=== PATIENT | male | born 2005 | race Two or more races ===

== ENCOUNTER 2024-09-08 00:32 | Inpatient (IN) | payer OTHER ==
[~2024-09-08] VITALS: Ht 190.5 cm; Wt 71.0 kg
[2024-09-08] VITALS (7 sets, daily range): BP systolic 105–122; BP diastolic 41–66; PULSE 60–92; RESP 8–18; TEMP 97.4–98; O2SAT 93–99
[2024-09-08 04:37] LABS: Basophils # (auto) 0 10 ^3/uL (0-0.2); Basophils % (auto) 0.3 % (0.0-2.0); Eosinophils # (auto) 0.1 10 ^3/uL (0-0.8); Eosinophils % (auto) 1.5 % (0.0-7.0); Hematocrit 41.4 % (41.0-53.0); Hemoglobin 14.7 g/dL (13.5-17.5); Lymphocytes # (auto) 2.5 10 ^3/uL (0.4-5.4); Lymphocytes % (auto) 32.8 % (10.0-50.0); Mean Corpuscular Hemoglobin 33.2 pg (28.0-32.0); Mean Corpuscular Hgb Conc. 35.5 g/dL (32.0-36.0); Mean Corpuscular Volume 93.5 fL (80.0-100.0); Monocytes # (auto) 0.6 10 ^3/uL (0-1.3); Monocytes % (auto) 8.2 % (0.0-12.0); Neutrophils # (auto) 4.4 10 ^3/uL (1.6-8.6); Neutrophils % (auto) 57.2 % (37.0-80.0); Nucleated Red Blood Cells % 0.2 %; Platelet Count (auto) 164 10^3/uL (140-450); Red Blood Cells 4.43 10^6/uL (4.5-5.90); White Blood Cell 7.7 10^3/uL (4.4-10.8)
[2024-09-08 04:38] LABS: INR 1.09 (0.9-1.15); Prothrombin Time 11.5 sec (9.3-11.8)
[2024-09-08 04:40] LABS: Alanine Aminotransferase 15 U/L (7-40); Albumin 4.3 g/dL (3.2-4.8); Alkaline Phosphatase 90 U/L (46-116); Anion Gap 6 (5-15); Aspartate Aminotransferase 17 U/L (13-40); BUN/Creatinine Ratio 14.6 (10.0-20.0); Bilirubin, Total 1.3 mg/dL (0.2-1.0); Blood Urea Nitrogen 15 mg/dL (9-23); Calcium 9.5 mg/dL (8.7-10.4); Carbon Dioxide 28 mmol/L (20-31); Chloride 105 mmol/L (98-107); Glucose 82 mg/dL (74-106); Potassium 3.8 mmol/L (3.5-5.1); Sodium 139 mmol/L (136-145); Total Protein 6.7 g/dL (5.7-8.2)
--- NOTE | 2024-09-08 04:44 | ED.PDOC ---
History of Present Illness HPI Comments 19 y/o M is [facility] from [facility] ([facility]) in [place], [place], for c/o abdominal pain, nausea, and vomiting for the past 2x days, today. Per EMS report, was seen at aforementioned facility for symptoms, earlier, and is being transferred for higher level of care after being found with acute appendicitis via CT scan there. Prior to arrival to ED, patient was stated to have been given Zosyn and Toradol. Patient denies any hematemesis, diarrhea, constipations, urinary symptoms, fever, chills, or other associated symptoms or modifiers at this time. Time Seen by MD: 01:00 Reviewed Notes: Nurses Notes, Behaviour Support Teacher Notes, Medications, Allergies Allergies: Coded Allergies: NO KNOWN ALLERGIES (Unverified , 09/08/24) Information Source: Patient, Transfer Record, Emergency Med Personnel Mode of Arrival: EMS Severity: Moderate Timing: Days Duration: Since onset Prehospital treatment: 12 Lead EKG, Basin Finish Operator Tig Welder, Other (see HPI) Past Medical History PAST MEDICAL HISTORY: Denies Surgical History: Denies all surgeries Family History Family History: Unknown Social History Smoker: Non-Smoker Alcohol: Denies ETOH Use Drugs: Denies Drug Use Lives In: Home All Other Systems: Reviewed and Negative (Comprehensive systems review obtained and negative except for what is stated in the HPI.) Physical Exam General Appearance: No Apparent Distress, Normal HEENT: Normal ENT Inspection, Pharynx Normal, TMs Normal Neck: Full Range of Motion, Non-Tender, Normal, Normal Inspection Respiratory: Chest Non-Tender, Lungs Clear, No Accessory Muscle Use, No Respiratory Distress, Normal Breath Sounds Cardiovascular: No Edema, No JVD, No Murmur, No Gallop, Normal Peripheral Pulses, Regular Rate/Rhythm Breast Exam: Deferred Gastrointestinal: No Organomegaly, No Pulsatile Mass, Normal Bowel Sounds, RLQ (tenderness ), Soft, Tenderness (RLQ) Genitalia: Deferred Pelvic: Deferred Rectal: Deferred Extremities: No calf tenderness, Normal capillary refill, Normal inspection, Normal range of motion, Non-tender, No pedal edema Musculoskeletal : Apperance: Normal Neurologic: Alert, soil scientist II-XII nml as Tested, No Motor Deficits, Normal Affect, Normal Mood, No Sensory Deficits Cerebellar Function: Normal Reflexes: Normal Skin: Dry, Normal Color, Warm Lymphatic: No Adenopathy Was a procedure done? Was a procedure done?: No EKG EKG : Pulse Rate (adult): 56 [place]: Normal Cardiac Rhythm: NSR Block: None Hypertrophy: None ST: Normal Differential Dx Considerations may include: appendicitis X-Ray, Labs, Meds, VS Vital Signs Date Time Temp Pulse Resp B/P (MAP) Pulse Ox O2 Delivery O2 Flow Rate FiO2 09/08/24 04:44 56 09/08/24 00:34 56 09/08/24 00:32 97.6 55 18 114/71 (85) 98 97.6 Lab Test 09/08/24 00:51 Range/Units White Blood Count 7.7 4.4-10.8 10^3/uL Red Blood Count 4.43 L 4.5-5.90 10^6/uL Hemoglobin 14.7 13.5-17.5 g/dL Hematocrit 41.4 41.0-53.0 % Mean Corpuscular Volume 93.5 80.0-100.0 fL Mean Corpuscular Hemoglobin 33.2 H 28.0-32.0 pg Mean Corpuscular Hemoglobin Concent 35.5 32.0-36.0 g/dL Red Cell Distribution Width 12.0 11.8-14.3 % Platelet Count 164 140-450 10^3/uL Mean Platelet Volume 10.0 6.9-10.8 fL Neutrophils (%) (Auto) 57.2 37.0-80.0 % Lymphocytes (%) (Auto) 32.8 10.0-50.0 % Monocytes (%) (Auto) 8.2 0.0-12.0 % Eosinophils (%) (Auto) 1.5 0.0-7.0 % Basophils (%) (Auto) 0.3 0.0-2.0 % Neutrophils # (Auto) 4.4 1.6-8.6 10 ^3/uL Lymphocytes # (Auto) 2.5 0.4-5.4 10 ^3/uL Monocytes # (Auto) 0.6 0-1.3 10 ^3/uL Eosinophils # (Auto) 0.1 0-0.8 10 ^3/uL Basophils # (Auto) 0 0-0.2 10 ^3/uL Nucleated Red Blood Cells 0.2 % Prothrombin Time 11.5 9.3-11.8 sec Prothrombin Time INR 1.09 0.9-1.15 Activated Partial Thromboplast Time 31.0 24.5-34.5 SEC Sodium Level 139 136-145 mmol/L Potassium Level 3.8 3.5-5.1 mmol/L Chloride Level 105 98-107 mmol/L Carbon Dioxide Level 28 20-31 mmol/L Anion Gap 6 5-15 Blood Urea Nitrogen 15 9-23 mg/dL Creatinine 1.03 0.700-1.30 mg/dL Glomerular Filtration Rate Calc 107 >90 mL/min BUN/Creatinine Ratio 14.6 10.0-20.0 Serum Glucose 82 74-106 mg/dL Calcium Level 9.5 8.7-10.4 mg/dL Total Bilirubin 1.3 H 0.2-1.0 mg/dL Aspartate Amino Transferase (AST) 17 13-40 U/L Alanine Aminotransferase (ALT) 15 7-40 U/L Alkaline Phosphatase 90 46-116 U/L Total Protein 6.7 5.7-8.2 g/dL Albumin 4.3 3.2-4.8 g/dL Time of 1ST Reevaluation: 01:30 Reevaluation 1ST: Unchanged Patient Education/Counseling: Diagnosis, Treatment Family Education/Counseling: No Family Present Additional Information Previous visit documents reviewed: n/a The following tests were ordered, and results were reviewed by me: EKG, PTPTT, CBC, CMP Additional Information was gathered from interviewing the following independent historians: EMS I reviewed and agreed with the following test results read by other providers: n/a I discussed treatment and results with medical personnel and: Patient Departure 1 Departure Time of Disposition: 04:55 (Patient presented with abdominal pain that was concerning for possible appendicits, gastritis, cholecystitis, colitis, gastroenteritis, sbo, or orther possible surgical emergency. Data: 1. I ordered and reviewed the result of at least 3 labs including a CBC, BMP, and Urinalysis. 2. I independently interpreted the following tests: Outside CT scan shows acute appendicitis.Risk:This patient has a high risk of morbidity due to further diagnostic testing or treatment and may suffer from an acute abdominal process disorder. Workup reveals acute appendicitis and patient should be admitted for further workup. and possible expert consultation. ) Impression: Primary Impression: Acute appendicitis Qualified Codes: K35.30 - Acute appendicitis with localized peritonitis, without perforation or gangrene Disposition: ADMITTED INPATIENT Admit to: Med Surg Condition: Serious Critical Care Note Critical Care Time?: Yes Critical care comment: Intractable abdominal pain Authorized and Performed by: Wilfredo Spangler MD Total critical care time: Approximately 48 minutes Due to a high probability of clinically significant, life threatening deterioration, the patient required my highest level of preparedness to intervene emergently and I personally spent this critical care time directly and personally managing the patient. This critical care time included obtaining a history; examining the patient; pulse oximetry; ordering and review of studies; arranging urgent treatment with development of a management plan; evaluation of patient's response to treatment; frequent reassessment; and, discussions with other providers. This critical care time was performed to assess and manage the high probability of imminent, life-threatening deterioration that could result in multi-organ failure. It was exclusive of separately billable procedures and treating other patients and teaching time. Please see my other sections and the rest of the note for further information on patient assessment and treatment. Stability Stability form required: No Heart Score Heart Score: Heart Score Response (Comments) Value History N/A 0 EKG N/A 0 Age N/A 0 Risk Factors N/A 0 Troponin N/A 0 Total 0 I personally scribed for WILFREDO SPANGLER MD ([email or web address]) on 09/08/24 at 04:44. Electronically submitted by Ronaldo Stern ([email or web address]). WILFREDO SPANGLER MD Sep 08, 2024 04:44
--- NOTE | 2024-09-08 05:16 | DVH ---
CHEST RADIOGRAPH Indication: SOB Technique: Single frontal view of the chest was obtained COMPARISON: None FINDINGS: Lines and Tubes: None Lungs: Clear Pleura: No effusion. No pneumothorax. Cardiomediastinal contours: Unremarkable Bones: Unremarkable IMPRESSION: No acute disease.
--- NOTE | 2024-09-08 05:22 | DVHHP2 ---
History of Present Illness Reason for Visit: Abdominal pain History of Present Illness 19-year-old male presents for evaluation of abdominal pain. Patient presented to outside facility with complaints of abdominal pain and has been ongoing for the past two days. CT scan from outside facility revealed acute appendicitis so he was transferred for higher level of care. He states his symptoms became worse yesterday. Describes the pain as intermittent sharp right lower quadrant pain. Denies nausea or vomiting. No fever or chills. No other acute complaints reported. Past Medical History Denies Past Surgical History Denies Family History Noncontributory Smoke: No ALCOHOL: none Drugs: None Review of Systems Review of Systems Review of systems are currently negative otherwise addressed in HPI. Allergies: Coded Allergies: NO KNOWN ALLERGIES (Unverified , 09/08/24) Exam Vital Signs Vital Signs Date Time Temp Pulse Resp B/P (MAP) Pulse Ox O2 Delivery O2 Flow Rate FiO2 09/08/24 04:44 56 09/08/24 00:32 97.6 18 114/71 (85) 98 97.6 Exam Gen: 19-year-old male in mild distress Skin: Warm, dry, normal color and texture, no rash. HEENT: Normocephalic atraumatic, mucous membranes moist and pink. Neck: Cervical and supraclavicular nodes normal without enlargement, trachea is midline, thyroid gland is normal without masses. Pulmonary: Clear to auscultation and percussion bilaterally. Cardiac: Regular rate and rhythm. No murmur Abdomen: Soft, right lower quadrant tenderness, nondistended, bowel sounds present all 4 quadrants, no guarding, no rigidity, no organomegaly. Extremities: No cyanosis, clubbing, no edema Neuro: Cranial nerves II through XII grossly intact, normal affect and speech, no focal motor deficits. Labs/Xrays Labs Test 09/08/24 00:51 Range/Units White Blood Count 7.7 4.4-10.8 10^3/uL Red Blood Count 4.43 L 4.5-5.90 10^6/uL Hemoglobin 14.7 13.5-17.5 g/dL Hematocrit 41.4 41.0-53.0 % Mean Corpuscular Volume 93.5 80.0-100.0 fL Mean Corpuscular Hemoglobin 33.2 H 28.0-32.0 pg Mean Corpuscular Hemoglobin Concent 35.5 32.0-36.0 g/dL Red Cell Distribution Width 12.0 11.8-14.3 % Platelet Count 164 140-450 10^3/uL Mean Platelet Volume 10.0 6.9-10.8 fL Neutrophils (%) (Auto) 57.2 37.0-80.0 % Lymphocytes (%) (Auto) 32.8 10.0-50.0 % Monocytes (%) (Auto) 8.2 0.0-12.0 % Eosinophils (%) (Auto) 1.5 0.0-7.0 % Basophils (%) (Auto) 0.3 0.0-2.0 % Neutrophils # (Auto) 4.4 1.6-8.6 10 ^3/uL Lymphocytes # (Auto) 2.5 0.4-5.4 10 ^3/uL Monocytes # (Auto) 0.6 0-1.3 10 ^3/uL Eosinophils # (Auto) 0.1 0-0.8 10 ^3/uL Basophils # (Auto) 0 0-0.2 10 ^3/uL Nucleated Red Blood Cells 0.2 % Prothrombin Time 11.5 9.3-11.8 sec Prothrombin Time INR 1.09 0.9-1.15 Activated Partial Thromboplast Time 31.0 24.5-34.5 SEC Sodium Level 139 136-145 mmol/L Potassium Level 3.8 3.5-5.1 mmol/L Chloride Level 105 98-107 mmol/L Carbon Dioxide Level 28 20-31 mmol/L Anion Gap 6 5-15 Blood Urea Nitrogen 15 9-23 mg/dL Creatinine 1.03 0.700-1.30 mg/dL Glomerular Filtration Rate Calc 107 >90 mL/min BUN/Creatinine Ratio 14.6 10.0-20.0 Serum Glucose 82 74-106 mg/dL Calcium Level 9.5 8.7-10.4 mg/dL Total Bilirubin 1.3 H 0.2-1.0 mg/dL Aspartate Amino Transferase (AST) 17 13-40 U/L Alanine Aminotransferase (ALT) 15 7-40 U/L Alkaline Phosphatase 90 46-116 U/L Total Protein 6.7 5.7-8.2 g/dL Albumin 4.3 3.2-4.8 g/dL Assessment/Plan Assessment/Plan Assessment Acute abdominal pain Acute appendicitis Plan Admit the patient to [facility] to the hospitalist Surgical consultation Zosyn Maintenance IV fluids Pain management Continue treatment per orders. Plan discussed with: Patient Date of Service: Sep 08, 2024 Billing Provider: DEL POWERS Common Visit Codes: [id number] INP/OBS CARE (HIGH) DEL POWERS Sep 08, 2024 05:22
[2024-09-08] MEDS: PIPERACILLIN-TAZOB 3.375GM 100 ML IV SCH (05:53)
[2024-09-08] MEDS: SODIUM CHLORIDE 0.9% 1,000 ML IV ONE (05:53)
[2024-09-08] MEDS: ONDANSETRON HCL 4 MG/2 ML VIAL IV PRN (07:53)
[2024-09-08] MEDS: MORPHINE SULFATE INJ 2 MG/ml SYRG IV PRN (07:54)
--- NOTE | 2024-09-08 14:24 | DVHPN2 ---
Progress Note Date Seen: Sep 08, 2024 Medical Necessity Reason Pt with a Central, PICC or Fol: No Subjective Patient reports: No new complaints Review of Systems: HEENT:Normal, CVS:Normal, RESPIRATORY:Normal, GI:Normal, :Normal, MSK:Normal, NEURO:Normal Objective vital signs Vital Sign Date Time Temp Pulse Resp B/P (MAP) Pulse Ox O2 Delivery O2 Flow Rate FiO2 09/08/24 13:00 98.0 87 18 106/41 (62) 97 98.0 09/08/24 08:00 Room Air* 0 21 Total Intake and Output 09/07/24 09/07/24 09/08/24 15:00 23:00 07:00 Intake Total 125 ml Balance 125 ml medications Current Medications Medications Dose Ordered Sig/Jennifer Route Start Time Stop Time Status Last Admin Dose Admin Piperacillin Sod/ Tazobactam Sod 100 ml @ 25 mls/hr Q6HR IV 09/08/24 06:00 09/08/24 13:12 25 MLS/HR Ondansetron HCl 4 mg Q4HP PRN IV 09/08/24 05:15 09/08/24 07:53 4 MG Morphine Sulfate 2 mg Q4HPRN PRN IV 09/08/24 05:15 09/08/24 07:54 2 MG Examination: GENERAL:Normal, HEENT:Normal, NECK:Normal, LUNGS:Normal, CVS:Normal, ABDOMEN:Normal, ABDOMEN:Abnormal (abd tenderness), MSK:Normal, SKIN:Normal, NEURO:Normal, :Normal laboratory and microbiology Laboratory Tests 09/08/24 00:51 Test 09/08/24 00:51 Range/Units Serum Glucose 82 74-106 mg/dL Problem List/Assessment/Plan Problem List/Assessment/Plan #1 acute appy: ivf, iv antibiotics, surg today #2 tobacco abuse: advised to quit, nicotine patch- time spent 11 mins Plan discussed with: Patient Date of Service: Sep 08, 2024 Billing Provider: DEL GARCIA MD Common Visit Codes: [id number] INP/OBS CARE(HIGH) Secondary Visit Codes: [id number] CHNG SMOKING >10MIN DEL GARCIA MD Sep 08, 2024 14:24
--- NOTE | 2024-09-08 14:25 | DVHINCON2 ---
Date of service: Sep 08, 2024 Allergies: Coded Allergies: NO KNOWN ALLERGIES (Unverified , 09/08/24) Home Meds No Active Prescriptions or Reported Meds Current Medications Current Medications Medications (Trade) Dose Ordered Sig/Jennifer Route PRN Reason Start Time Stop Time Status Last Admin Piperacillin Sod/ Tazobactam Sod 100 ml @ 25 mls/hr Q6HR IV 09/08/24 06:00 09/08/24 13:12 Ondansetron HCl (Zofran) 4 mg Q4HP PRN IV NAUSEA / VOMITING 09/08/24 05:15 09/08/24 07:53 Morphine Sulfate 2 mg Q4HPRN PRN IV SEVERE PAIN (7-10 PAIN SCALE) 09/08/24 05:15 09/08/24 07:54 Vital Signs Vital Signs Date Time Temp Pulse Resp B/P (MAP) Pulse Ox O2 Delivery O2 Flow Rate FiO2 09/08/24 13:00 98.0 87 18 106/41 (62) 97 98.0 09/08/24 08:00 Room Air* 0 21 Labs/Diagnostic Data Labs Test 09/08/24 12:00 09/08/24 00:51 Range/Units White Blood Count 7.7 4.4-10.8 10^3/uL Red Blood Count 4.43 L 4.5-5.90 10^6/uL Hemoglobin 14.7 13.5-17.5 g/dL Hematocrit 41.4 41.0-53.0 % Mean Corpuscular Volume 93.5 80.0-100.0 fL Mean Corpuscular Hemoglobin 33.2 H 28.0-32.0 pg Mean Corpuscular Hemoglobin Concent 35.5 32.0-36.0 g/dL Red Cell Distribution Width 12.0 11.8-14.3 % Platelet Count 164 140-450 10^3/uL Mean Platelet Volume 10.0 6.9-10.8 fL Neutrophils (%) (Auto) 57.2 37.0-80.0 % Lymphocytes (%) (Auto) 32.8 10.0-50.0 % Monocytes (%) (Auto) 8.2 0.0-12.0 % Eosinophils (%) (Auto) 1.5 0.0-7.0 % Basophils (%) (Auto) 0.3 0.0-2.0 % Neutrophils # (Auto) 4.4 1.6-8.6 10 ^3/uL Lymphocytes # (Auto) 2.5 0.4-5.4 10 ^3/uL Monocytes # (Auto) 0.6 0-1.3 10 ^3/uL Eosinophils # (Auto) 0.1 0-0.8 10 ^3/uL Basophils # (Auto) 0 0-0.2 10 ^3/uL Nucleated Red Blood Cells 0.2 % Prothrombin Time 11.5 9.3-11.8 sec Prothrombin Time INR 1.09 0.9-1.15 Activated Partial Thromboplast Time 31.0 24.5-34.5 SEC Sodium Level 139 136-145 mmol/L Potassium Level 3.8 3.5-5.1 mmol/L Chloride Level 105 98-107 mmol/L Carbon Dioxide Level 28 20-31 mmol/L Anion Gap 6 5-15 Blood Urea Nitrogen 15 9-23 mg/dL Creatinine 1.03 0.700-1.30 mg/dL Glomerular Filtration Rate Calc 107 >90 mL/min BUN/Creatinine Ratio 14.6 10.0-20.0 Serum Glucose 82 74-106 mg/dL Calcium Level 9.5 8.7-10.4 mg/dL Total Bilirubin 1.3 H 0.2-1.0 mg/dL Aspartate Amino Transferase (AST) 17 13-40 U/L Alanine Aminotransferase (ALT) 15 7-40 U/L Alkaline Phosphatase 90 46-116 U/L Total Protein 6.7 5.7-8.2 g/dL Albumin 4.3 3.2-4.8 g/dL Assessment [id number] AC APPENDICITIS LAP/OPEN APPENDECTOMY Plan discussed with: Patient JULIANNA OLGUIN MD Sep 08, 2024 14:25
[2024-09-08] MEDS: NICOTINE 21MG/24 HR TOPICAL PATCH TD ONE (14:30)
--- NOTE | 2024-09-08 14:36 | DVHINCON2 ---
DATE OF CONSULTATION: 09/08/2024 HISTORY OF PRESENT ILLNESS: This patient is 19 years old, coming in with right lower abdominal pain started yesterday, some nausea, no vomiting, no constipation, diarrhea. No hematemesis, melena. No bleeding per rectum. PAST MEDICAL HISTORY: No diabetes, hypertension. PAST SURGICAL HISTORY: No significant surgical history. PHYSICAL EXAMINATION: VITAL SIGNS: Afebrile, stable signs. HEENT: With no evidence of pallor, cyanosis, or jaundice. NECK: Supple, nontender with no thyromegaly, lymphadenopathy. CHEST AND LUNGS: Clear. HEART: Within normal limits. ABDOMEN: Soft, tender in the right lower quadrant, evidence of rebound. EXTREMITIES: Unremarkable. NEUROLOGIC: Intact. CLINICAL IMPRESSION: Acute appendicitis. PLAN: Laparoscopic, possible open appendectomy. Benefits were discussed and a consent obtained. MD JULISSA Little/YVETTE TID: [id number] RECEIPT: [id number] cc: Evangelist Bond MD
[2024-09-08] MEDS ORDERED: LIDOCAINE 1% HCL (LOCAL ANESTH.) INJ 20ML MDV ONE (14:56)
[2024-09-08] MEDS ORDERED: ceFAZolin 2 GM/D5W100ml 100 ML IV ONE (15:20)
[2024-09-08] MEDS ORDERED: GLYCOPYRROLATE 0.2 MG/ML 1ML VIAL ONE (15:42)
[2024-09-08] MEDS ORDERED: PROPOFOL 10 MG/ML 20 ML IV ONE (15:42)
[2024-09-08] MEDS ORDERED: DexAMETHasone SOD PHOS 10MG/1ML VIAL INJ ONE (15:42)
[2024-09-08] MEDS ORDERED: LIDOCAINE 2% (LOCAL ANESTH.) PF 5ml SDV ONE (15:42)
[2024-09-08] MEDS ORDERED: ROCURONIUM 10MG/ML 10ML VIAL IV ONE (15:42)
[2024-09-08] MEDS ORDERED: SUGAMMADEX 200mg/2ml Vial (100MG/ML) IV ONE (15:42)
[2024-09-08] MEDS ORDERED: LIDOCAINE HCL 2% TOP JELLY 5ML TOP ONE (15:42)
[2024-09-08] MEDS ORDERED: KETOROLAC TROMETH 30 MG/ML 1ML VIAL ONE (15:42)
[2024-09-08] MEDS ORDERED: ONDANSETRON HCL 4 MG/2 ML VIAL ONE (15:42)
[2024-09-08] MEDS ORDERED: KETAMINE 50mg/ML 1ml syringe ONE (15:43)
[2024-09-08] MEDS ORDERED: fentaNYL CITRATE 100 MCG/2 ML VL ONE (15:43)
[2024-09-08] MEDS ORDERED: CELECOXIB 100 MG CAP ONE (15:43)
[2024-09-08] MEDS ORDERED: GABAPENTIN 300 MG CAP ONE (15:44)
[2024-09-08] MEDS ORDERED: ACETAMINOPHEN 500 MG TAB or CAP PO ONE (15:44)
[2024-09-08] MEDS ORDERED: CELECOXIB 100 MG CAP PO ONE (15:45)
[2024-09-08] MEDS ORDERED: ACETAMINOPHEN IV 1000 MG/100ML (10MG/ML) IV ONE (15:45)
[2024-09-08] MEDS ORDERED: GABAPENTIN 300 MG CAP PO ONE (15:45)
--- NOTE | 2024-09-08 16:47 | DVHOP2 ---
Operative Report [id number] AC APPENDICITIS LAP APPENDECTOMY EBL 5 CC NO DRAINS NO COMPLICATIONS JULIANNA OLGUIN MD Sep 08, 2024 16:47
[2024-09-08] MEDS ORDERED: HYDROmorphone HCL 2 MG/ML VL/or syr IV PRN (17:00)
[2024-09-08] MEDS ORDERED: ePHEDrine SULFATE 50 MG/ML AMP IV PRN (17:00)
[2024-09-08] MEDS ORDERED: hydrALAZINE HCL 20 MG/ML VL IV PRN (17:00)
[2024-09-08] MEDS ORDERED: FLUMAZENIL 0.1 MG/ML INJ 10ML MDV IV PRN (17:00)
[2024-09-08] MEDS ORDERED: fentaNYL CITRATE 100 MCG/2 ML VL IV PRN (17:00)
[2024-09-08] MEDS ORDERED: NALOXONE HCL 0.4 MG/ML VIAL IV PRN (17:00)
[2024-09-08] MEDS ORDERED: ONDANSETRON HCL 4 MG/2 ML VIAL IV PRN (17:00)
--- NOTE | 2024-09-08 17:05 | DVHOP ---
DATE OF SURGERY: 09/08/2024 PREOPERATIVE DIAGNOSES: Acute appendicitis with pelvic abscess. POSTOPERATIVE DIAGNOSES: Acute appendicitis with pelvic abscess. PROCEDURES: Drainage of pelvic abscess and laparoscopic appendectomy. SURGEON: Justin Gavin MD QUAHOGGER: None. ANESTHESIA: General. ESTIMATED BLOOD LOSS: Close to 5 mL DRAINS: No drains were used. COMPLICATIONS: No complication encountered. DESCRIPTION OF PROCEDURE: The patient was prepped and draped in the usual sterile fashion in the supine position and a supraumbilical incision was applied, was taken down to the fascia. The Veress needle was introduced and CO2 insufflation was started pressure of 15 mmHg and needle withdrawn, replaced by the 12 mm trocar and a telescope was introduced and the appendix was found to be acutely inflamed, mostly at the tip. It was a beginning appendicitis with a pelvic seroma collection with a possibility of an abscess. Two 5 mm ports were applied more inferiorly, one above the symphysis, the third midway between the upper two. The patient was placed in the Trendelenburg and right upper lateral position. The camera was moved to the lowermost 5 mm port, the upper 2 ports were used for surgery. The abscess was drained out from the pelvic location and the mesoappendix was clipped at the base, divided distal to that using Harmonic device. The base of the appendix was cleared for transection using the Endo BUTCH stapling device. The appendix released in this fashion, was retrieved from the supraumbilical wound in the EndoCatch bag without any complication. Hemostasis was secured. Irrigation fluid was removed. The ports were free from bleeding. EndoClose suture used for the fascial closure of the supraumbilical wound. All the ports were withdrawn after all the CO2 had been let out and the patient was placed in supine, the wounds were then brought together using 3-0 Monocryl suture in a subcuticular fashion. Surgical glue was applied. The patient tolerated the procedure well and was taken back to recovery room in stable condition. MD JULISSA Little/ALEXANDRO/SASHA TID: [id number] RECEIPT: [id number] cc: Evangelist Bond MD
[2024-09-08] MEDS: oxyCODONE HCL 5MG TAB PO PRN (18:18)
[2024-09-08] MEDS: metroNIDAZOLE 500MG/100ML 100 ML IV SCH (21:11)
[2024-09-08 23:06] LABS: Urine Bacteria None Seen /hpf (None Seen)
[2024-09-08 23:24] LABS: Urine Blood Negative /uL (Negative); Urine Clarity Clear (Clear); Urine Color Colorless (Yellow); Urine Protein, UAD Negative (Negative); Urine Specific Gravity 1.006 (1.001-1.035); Urine Squamous Epithelial Cell None Seen /hpf (<5); Urine Urobilinogen Normal (Negative); Urine pH 5.5 (5.0-9.0)
[2024-09-08] MEDS: HYDROcodone-ACET 5/325MG TAB PO PRN (23:27)
[2024-09-08 23:29] LABS: Urine WBC < 1 /HPF (0-3)
[2024-09-09] VITALS (7 sets, daily range): BP systolic 99–111; BP diastolic 39–71; PULSE 65–87; RESP 17–18; TEMP 97.3–97.9; O2SAT 96–100
[2024-09-09 06:32] LABS: Basophils # (auto) 0 10 ^3/uL (0-0.2); Basophils % (auto) 0.1 % (0.0-2.0); Eosinophils # (auto) 0 10 ^3/uL (0-0.8); Hematocrit 45.1 % (41.0-53.0); Hemoglobin 15.8 g/dL (13.5-17.5); Lymphocytes # (auto) 0.6 10 ^3/uL (0.4-5.4); Mean Corpuscular Hemoglobin 32.1 pg (28.0-32.0); Mean Corpuscular Hgb Conc. 34.9 g/dL (32.0-36.0); Mean Corpuscular Volume 91.9 fL (80.0-100.0); Monocytes # (auto) 0.2 10 ^3/uL (0-1.3); Monocytes % (auto) 3.2 % (0.0-12.0); Neutrophils # (auto) 6.1 10 ^3/uL (1.6-8.6); Neutrophils % (auto) 87.7 % (37.0-80.0); Platelet Count (auto) 170 10^3/uL (140-450); Red Blood Cells 4.91 10^6/uL (4.5-5.90); Red Cell Distribution Width 11.8 % (11.8-14.3)
[2024-09-09 06:43] LABS: Alanine Aminotransferase 14 U/L (7-40); Albumin 4.4 g/dL (3.2-4.8); Alkaline Phosphatase 93 U/L (46-116); Anion Gap 9 (5-15); Aspartate Aminotransferase 15 U/L (13-40); BUN/Creatinine Ratio 14.8 (10.0-20.0); Bilirubin, Total 1.1 mg/dL (0.2-1.0); Blood Urea Nitrogen 13 mg/dL (9-23); Calcium 9.9 mg/dL (8.7-10.4); Carbon Dioxide 27 mmol/L (20-31); Chloride 104 mmol/L (98-107); Potassium 4.7 mmol/L (3.5-5.1); Sodium 140 mmol/L (136-145); Total Protein 6.9 g/dL (5.7-8.2)
[2024-09-09 06:44] LABS: Glucose 126 mg/dL (74-106)
[2024-09-09] MEDS: MORPHINE SULFATE INJ 2 MG/ml SYRG IV ONE (09:08)
--- NOTE | 2024-09-09 09:08 | ECG ---
[facility] Test Date: 2024-09-08 Test Time: 00:34:41 Pat Name: MICHAEL DIETRICH Department: ED Room: 0223 B Gender: M Mill Feeder: ED : 2005 Requested By: EMERGENCY EMERGENCY Order Number: [id number] Reading MD: Enzo Ervin Measurements Intervals [place] Rate: 56 P: 76 CO: 146 QRS: 87 QRSD: 92 T: 64 QT: 414 QTc: 400 Interpretive Statements Sinus rhythm ST elev, probable normal early repol pattern Electronically Signed On 09-09-2024 14:07:23 PDT by Enzo Ervin Please click the below link to view image of tracing.
[2024-09-09] MEDS ORDERED: HYDROmorphone HCL 2 MG/ML VL/or syr IV PRN (09:15)
--- NOTE | 2024-09-09 10:22 | DVHPN2 ---
Progress Note Date Seen: Sep 09, 2024 Medical Necessity Reason Pt with a Central, PICC or Fol: No Subjective Patient reports: No new complaints Review of Systems: HEENT:Normal, CVS:Normal, RESPIRATORY:Normal, GI:Normal, :Normal, MSK:Normal, NEURO:Normal Objective vital signs Vital Sign Date Time Temp Pulse Resp B/P (MAP) Pulse Ox O2 Delivery O2 Flow Rate FiO2 09/09/24 09:08 78 17 111/71 09/09/24 08:53 97.7 98 97.7 09/08/24 20:00 Room Air* 0 21 Total Intake and Output 09/08/24 09/08/24 09/09/24 15:00 23:00 07:00 Intake Total 275 ml 100 ml 1534 ml Output Total 2 ml Balance 275 ml 98 ml 1534 ml medications Current Medications Medications Dose Ordered Sig/Jennifer Route Start Time Stop Time Status Last Admin Dose Admin Ondansetron HCl 4 mg Q4HP PRN IV 09/08/24 05:15 09/08/24 07:53 4 MG Morphine Sulfate 2 mg Q4HPRN PRN IV 09/08/24 05:15 09/09/24 05:25 2 MG Nicotine 1 patch Q24H TD 09/09/24 15:00 Ceftriaxone Sodium 50 ml @ 100 mls/hr Q24H IV 09/09/24 15:00 Metronidazole 100 ml @ 100 mls/hr Q8HR IV 09/08/24 22:00 09/09/24 05:30 100 MLS/HR Acetaminophen/ Hydrocodone Bitart 1 tab Q6HPRN PRN PO 09/08/24 14:30 09/08/24 23:27 1 TAB Hydromorphone HCl 0.25 mg Q4HPRN PRN IV 09/09/24 09:15 Examination: GENERAL:Normal, HEENT:Normal, NECK:Normal, LUNGS:Normal, CVS:Normal, ABDOMEN:Normal, MSK:Normal, SKIN:Normal, NEURO:Normal, :Normal laboratory and microbiology Laboratory Tests 09/09/24 05:37 Test 09/09/24 05:37 Range/Units Serum Glucose 126 H 74-106 mg/dL Problem List/Assessment/Plan Problem List/Assessment/Plan #1 acute appy: ivf, iv antibiotics, s/p surg, still having pain- adjust meds #2 tobacco abuse: advised to quit, nicotine patch- time spent 11 mins Plan discussed with: Patient My Orders My Orders Orders - DEL GARCIA MD Procedure Category Date Status Time Nicotine 21mg/24hr PHA 09/09/24 In Process (Nicoderm 21mg/24hr) 15:00 Ceftriaxone 1gm/50ml PHA 09/09/24 In Process D5w (Rocephin) 15:00 Metronidazole PHA 09/08/24 In Process 500mg/100ml (Flagyl 22:00 Hydrocodone-Acet PHA 09/08/24 In Process 5/325mg Tab ([place] 14:30 Mrsa Screen RUTHIE 09/08/24 In Process 17:17 Date of Service: Sep 09, 2024 Billing Provider: DEL GARCIA MD Common Visit Codes: [id number] INP/OBS CARE(HIGH) DEL GARCIA MD Sep 09, 2024 10:22
[2024-09-09] MEDS: HYDROmorphone HCL 2 MG/ML VL/or syr IV PRN (11:52)
--- NOTE | 2024-09-09 15:13 | DVHPN2 ---
Progress Note Date Seen: Sep 09, 2024 Medical Necessity Reason Pt with a Central, PICC or Fol: No Objective vital signs Vital Sign Date Time Temp Pulse Resp B/P (MAP) Pulse Ox O2 Delivery O2 Flow Rate FiO2 09/09/24 13:00 97.3 70 17 110/50 (70) 99 97.3 09/09/24 08:00 Room Air* 0 21 Total Intake and Output 09/08/24 09/08/24 09/09/24 15:00 23:00 07:00 Intake Total 275 ml 100 ml 1534 ml Output Total 2 ml Balance 275 ml 98 ml 1534 ml medications Current Medications Medications Dose Ordered Sig/Jennifer Route Start Time Stop Time Status Last Admin Dose Admin Ondansetron HCl 4 mg Q4HP PRN IV 09/08/24 05:15 09/08/24 07:53 4 MG Nicotine 1 patch Q24H TD 09/09/24 15:00 Ceftriaxone Sodium 50 ml @ 100 mls/hr Q24H IV 09/09/24 15:00 Metronidazole 100 ml @ 100 mls/hr Q8HR IV 09/08/24 22:00 09/09/24 14:11 100 MLS/HR Acetaminophen/ Hydrocodone Bitart 1 tab Q6HPRN PRN PO 09/08/24 14:30 09/09/24 13:08 1 TAB Hydromorphone HCl 0.5 mg Q4HPRN PRN IV 09/09/24 10:30 09/09/24 11:52 0.5 MG laboratory and microbiology Laboratory Tests 09/09/24 05:37 Test 09/09/24 05:37 Range/Units Serum Glucose 126 H 74-106 mg/dL Microbiology Date/Time Source Procedure Growth Status 09/09/24 06:30 Nose MRSA Screen - Final Complete Problem List/Assessment/Plan Problem List/Assessment/Plan AFEBRILE VSS ABD SOFT WOUNDS HEALING SURYA DIET NO COMPLICATIONS CLEARED FOR DISCHARGE INSTRUCTIONS RE DIET ACTIVITY F/UP GIVEN NURSE AT BEDSIDE Plan discussed with: Patient My Orders My Orders Orders - JULIANNA OLGUIN MD Procedure Category Date Status Time Clear Liq Diet DIET 09/09/24 Transmitted Breakfast Full Liq Diet DIET 09/09/24 Transmitted Lunch JULIANNA OLGUIN MD Sep 09, 2024 15:13
[2024-09-09] MEDS: NICOTINE 21MG/24 HR TOPICAL PATCH TD SCH (15:28)
--- NOTE | 2024-09-09 15:28 | DVHDS2 ---
Discharge Summary Date of Admission Sep 08, 2024 at 05:12 Date of Discharge: Sep 09, 2024 Labs/Diagnostic Data: Laboratory Results Test 09/09/24 05:37 09/08/24 23:04 09/08/24 12:00 09/08/24 00:51 White Blood Count 7.0 10^3/uL (4.4-10.8) Red Blood Count 4.91 10^6/uL (4.5-5.90) Hemoglobin 15.8 g/dL (13.5-17.5) Hematocrit 45.1 % (41.0-53.0) Mean Corpuscular Volume 91.9 fL (80.0-100.0) Mean Corpuscular Hemoglobin 32.1 pg (28.0-32.0) Mean Corpuscular Hemoglobin Concent 34.9 g/dL (32.0-36.0) Red Cell Distribution Width 11.8 % (11.8-14.3) Platelet Count 170 10^3/uL (140-450) Mean Platelet Volume 10.2 fL (6.9-10.8) Neutrophils (%) (Auto) 87.7 % (37.0-80.0) Lymphocytes (%) (Auto) 9.0 % (10.0-50.0) Monocytes (%) (Auto) 3.2 % (0.0-12.0) Eosinophils (%) (Auto) 0.0 % (0.0-7.0) Basophils (%) (Auto) 0.1 % (0.0-2.0) Neutrophils # (Auto) 6.1 10 ^3/uL (1.6-8.6) Lymphocytes # (Auto) 0.6 10 ^3/uL (0.4-5.4) Monocytes # (Auto) 0.2 10 ^3/uL (0-1.3) Eosinophils # (Auto) 0 10 ^3/uL (0-0.8) Basophils # (Auto) 0 10 ^3/uL (0-0.2) Nucleated Red Blood Cells 0.0 % Sodium Level 140 mmol/L (136-145) Potassium Level 4.7 mmol/L (3.5-5.1) Chloride Level 104 mmol/L (98-107) Carbon Dioxide Level 27 mmol/L (20-31) Anion Gap 9 (5-15) Blood Urea Nitrogen 13 mg/dL (9-23) Creatinine 0.88 mg/dL (0.700-1.30) Glomerular Filtration Rate Calc 126 mL/min (>90) BUN/Creatinine Ratio 14.8 (10.0-20.0) Serum Glucose 126 mg/dL (74-106) Calcium Level 9.9 mg/dL (8.7-10.4) Total Bilirubin 1.1 mg/dL (0.2-1.0) Aspartate Amino Transferase (AST) 15 U/L (13-40) Alanine Aminotransferase (ALT) 14 U/L (7-40) Alkaline Phosphatase 93 U/L (46-116) Total Protein 6.9 g/dL (5.7-8.2) Albumin 4.4 g/dL (3.2-4.8) Urine Color Colorless (Yellow) Urine Clarity Clear (Clear) Urine pH 5.5 (5.0-9.0) Urine Specific [place] 1.006 (1.001-1.035) Urine Protein Negative (Negative) Urine Ketones Trace (Negative) Urine Blood Negative /uL (Negative) Urine Nitrite Negative (Negative) Urine Bilirubin Negative (Negative) Urine Urobilinogen Normal mg/dL (Negative) Urine Leukocyte Esterase Negative /uL (Negative) Urine RBC <1 /hpf (0 - 3) Urine Microscopic WBC < 1 /HPF (0-3) Urine Squamous Epithelial Cells None seen /hpf (<5) Urine Bacteria None seen /hpf (None Seen) Urine Glucose Trace mg/dL (Normal) Prothrombin Time 11.5 sec (9.3-11.8) Prothrombin Time INR 1.09 (0.9-1.15) Activated Partial Thromboplast Time 31.0 SEC (24.5-34.5) Other Laboratory Tests 09/09/24 05:37 Brief Hx & Hospital Course: SEE DICTATED NOTE Condition at Discharge: Good Final Diagnosis/Problems List ACUTE APPY Discharge Disposition: Home Discharge Instruct/Medications Diet: Regular Activity: No Restrictions, As Tolerated Follow Up/Referral: NADJA OLGUIN IN 1 WK Medications: SCRIPT IN CHART Discharge Statement: "Patient was advised to return to the ER or call 911 if any headaches, dizziness, shortness of breath, chest pain, abdominal pain, bleeding, fevers, or worsening of medical condition. Patient was counseled about treatment plan, medications, possible side effects, patientverbalized understanding. All questions were answered to the best of my ability. This discharge took greater then 30 minutes in planning, reviewing documentation, counseling the patient, and discussing with other team members." ASSESSMENT ASSESSMENT Assessment ACUTE APPY Date of Service: Sep 09, 2024 Billing Provider: LEOPOLDO GARCIA MD Common Visit Codes: [id number] DISCH DAY >30min DEL GARCIA MD Sep 09, 2024 15:28
[2024-09-09] MEDS: cefTRIAXone 1GM/50ML D5W 50 ML IV SCH (15:29)
--- NOTE | 2024-09-09 15:34 | DVHDS ---
DATE OF DISCHARGE: 09/09/2024 HISTORY OF PRESENT ILLNESS: The patient is a 19-year-old gentleman who was admitted with complaints of abdominal pain and was diagnosed to have acute appendicitis. HOSPITAL COURSE: The patient was seen in surgery consult by Dr. Moni Gavin. The patient underwent laparoscopic appendectomy on 09/08/2024. The patient is now doing well and is tolerating oral diet. He has been cleared for discharge. The patient will be discharged to be on Keflex 500 mg t.i.d. for 7 days, tramadol p.r.n. for pain and Colace p.r.n. for constipation. He will follow up with Dr. Gavin in 1 week. FINAL DIAGNOSES: Therefore: * Acute appendicitis, status post laparoscopic appendectomy. * Tobacco abuse. Time spent in discharge planning and review of plan with the patient and nursing was 37 minutes. MD DELFINA Gamez/JOSÉ TID: [id number] RECEIPT: [id number]
[2024-09-10 01:00] VITALS: BP 106/67; PULSE 67; RESP 18; TEMP 97.4; O2SAT 97
[2024-09-10 05:00] VITALS: BP 106/55; PULSE 62; RESP 18; TEMP 97.7; O2SAT 98
[2024-09-10 06:59] LABS: Chloride 107 mmol/L (98-107); Potassium 4.5 mmol/L (3.5-5.1); Sodium 140 mmol/L (136-145)
[2024-09-10 07:00] LABS: Anion Gap 3 (5-15); Carbon Dioxide 30 mmol/L (20-31)
[2024-09-10 07:01] LABS: Calcium 9.4 mg/dL (8.7-10.4)
[2024-09-10 07:05] LABS: Glucose 91 mg/dL (74-106)
[2024-09-10 07:06] LABS: Blood Urea Nitrogen 10 mg/dL (9-23)
[2024-09-10 07:07] LABS: Basophils # (auto) 0 10 ^3/uL (0-0.2); Basophils % (auto) 0.2 % (0.0-2.0); Eosinophils # (auto) 0.1 10 ^3/uL (0-0.8); Eosinophils % (auto) 0.9 % (0.0-7.0); Hematocrit 41.8 % (41.0-53.0); Hemoglobin 14.9 g/dL (13.5-17.5); Lymphocytes # (auto) 2.5 10 ^3/uL (0.4-5.4); Lymphocytes % (auto) 33.2 % (10.0-50.0); Mean Corpuscular Hemoglobin 33.2 pg (28.0-32.0); Mean Corpuscular Hgb Conc. 35.7 g/dL (32.0-36.0); Monocytes # (auto) 0.7 10 ^3/uL (0-1.3); Monocytes % (auto) 9.6 % (0.0-12.0); Neutrophils # (auto) 4.2 10 ^3/uL (1.6-8.6); Neutrophils % (auto) 56.1 % (37.0-80.0); Nucleated Red Blood Cells % 0.1 %; Platelet Count (auto) 169 10^3/uL (140-450); Red Cell Distribution Width 12.2 % (11.8-14.3); White Blood Cell 7.5 10^3/uL (4.4-10.8)
--- NOTE | 2024-09-10 08:44 | DVHPN2 ---
Changes from previous H/P or p: No Changes Objective Vitals Vital Signs Date Time Temp Pulse Resp B/P (MAP) Pulse Ox O2 Delivery O2 Flow Rate FiO2 09/10/24 07:50 Room Air* 0 21 09/10/24 05:00 97.7 62 18 106/55 (72) 98 97.7 Intake/Output Intake and Output 09/10/24 07:00 Intake Total 2600 ml Balance 2600 ml Intake Oral 2250 ml IV Total 350 ml # Voids 15 Medications Current Medications Medications Dose Ordered Sig/Jennifer Route Start Time Stop Time Status Last Admin Dose Admin Ondansetron HCl 4 mg Q4HP PRN IV 09/08/24 05:15 09/08/24 07:53 4 MG Nicotine 1 patch Q24H TD 09/09/24 15:00 09/09/24 15:28 1 PATCH Ceftriaxone Sodium 50 ml @ 100 mls/hr Q24H IV 09/09/24 15:00 09/09/24 15:29 100 MLS/HR Metronidazole 100 ml @ 100 mls/hr Q8HR IV 09/08/24 22:00 09/10/24 05:51 100 MLS/HR Acetaminophen/ Hydrocodone Bitart 1 tab Q6HPRN PRN PO 09/08/24 14:30 09/10/24 04:06 1 TAB Hydromorphone HCl 0.5 mg Q4HPRN PRN IV 09/09/24 10:30 09/09/24 11:52 0.5 MG Laboratory Results Laboratory Tests 09/10/24 06:17 Chemistry Test 09/10/24 06:17 Calcium Level 9.4 mg/dL (8.7-10.4) Urinalysis Test 09/08/24 23:04 Urine Color Colorless (Yellow) Urine Clarity Clear (Clear) Urine pH 5.5 (5.0-9.0) Urine Specific [place] 1.006 (1.001-1.035) Urine Protein Negative (Negative) Urine Ketones Trace (Negative) Urine Blood Negative /uL (Negative) Urine Nitrite Negative (Negative) Urine Bilirubin Negative (Negative) Urine Urobilinogen Normal mg/dL (Negative) Urine Leukocyte Esterase Negative /uL (Negative) Urine RBC <1 /hpf (0 - 3) Urine Microscopic WBC < 1 /HPF (0-3) Urine Squamous Epithelial Cells None seen /hpf (<5) Urine Bacteria None seen /hpf (None Seen) Urine Glucose Trace mg/dL (Normal) Microbiology Microbiology Date/Time Source Procedure Growth Status 09/09/24 06:30 Nose MRSA Screen - Final Complete Labs and/or images reviewed: Labs reviewed by me, Image(s) reviewed by me Assessment/Plan Assessment/Plan Patient underwent laparoscopic appendectomy Discharged by Dr. 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
[2024-09-10 09:00] VITALS: BP 115/65; PULSE 68; RESP 17; TEMP 98.1; O2SAT 98
[2024-09-10 10:28] VITALS: BP 117/67; PULSE 74; RESP 18; TEMP 98; O2SAT 98
[2024-09-13 10:16] LABS: Hepatitis B Surface Antigen Negative (Negative)
[2024-09-13 10:32] LABS: Hepatitis C Antibody Negative (Negative)
== END 2024-09-10 10:28 | disposition home or self-care (01) | DRG 399 ==
LOC: ER 00:32 → OVERFLOW 05:12 → CENTRAL 09:58
PROVIDERS: ADMIT Family Medicine; ATTEND Family Medicine
PROC: 0W9G4ZZ Drainage of Peritoneal Cavity, Percutaneous Endoscopic Approach (ICD-10-PCS; 2024-09-08)
PROC: 0DTJ4ZZ Resection of Appendix, Percutaneous Endoscopic Approach (ICD-10-PCS; principal; 2024-09-08 15:49)
DX: K35.33 Acute appendicitis with perforation, localized peritonitis, and gangrene, with abscess (principal); K59.00 Constipation, unspecified; Z72.0 Tobacco use; Z79.899 Other long term (current) drug therapy
CPT/HCPCS: 36415; 71045; 80048; 80053; 81001; 85025; 85610; 85730; 86803; 86850; 86900; 86901; 87081; 87340; 93005; 96361; 96374; 99291; G0378; J1100; J1885; J2003; J2405; J2543; J2704; J3490